=== PATIENT | female | born 1995 ===

== ENCOUNTER 2023-02-20 20:01 | Day surgery (SDC) | payer BC ==
[2023-02-20 20:22] VITALS: BMI 32.1
[2023-02-20] MEDS ORDERED: hydrALAZINE 20 MG/ML VIAL SLOW IVP PRN (20:43)
== END 2023-02-20 21:48 | disposition home or self-care (01) ==
LOC: CSHLD/OP 20:01
PROVIDERS: ATTEND Family Medicine
DX: O36.8130 Decreased fetal movements, third trimester, not applicable or unspecified (principal); Z79.899 Other long term (current) drug therapy; Z3A.34 34 weeks gestation of pregnancy
CPT/HCPCS: 76819; 99282

== ENCOUNTER 2023-03-21 00:17 | Day surgery (SDC) | payer BC ==
[2023-03-21 00:34] VITALS: BMI 31.3
[2023-03-21] MEDS ORDERED: hydrALAZINE 20 MG/ML VIAL SLOW IVP PRN (01:22)
[2023-03-21] MEDS ORDERED: Lactated Ringer's 1,000 ML IV SCH (01:45)
[2023-03-21 01:50] LABS: #Basophils 0.1 10x3/uL (0.0-0.2); #Eosinphils 0.4 10x3/uL (0.0-0.5); #Monocytes 1.3 10x3/uL (0.0-1.1); #Neutrophils 12.6 10x3/uL (1.5-8.4); %Basophils 0.7 % (0.0-2.0); %Eosinophils 2.3 % (0.0-6.0); %Lymphocytes 16.9 % (18.0-47.0); %Monocytes 7.2 % (0.0-10.0); %Neutrophils 71.3 % (40.0-75.0); Hematocrit 37.6 % (34.9-44.5); Hemoglobin 13.6 g/dL (12.0-15.5); Mean Corpuscular HGB CONC 36.2 g/dL (32.0-36.0); Mean Corpuscular Hemoglobin 31.5 pg (27.0-33.0); Mean Platelet Volume 10.8 fl (7.4-10.4); Platelet Count 278 10x3/uL (150-450); RBC Distribution Width 13.4 % (11.5-14.5); Red Blood Cell (RBC) Count 4.32 10x6/uL (3.90-5.03); White Blood Cell (WBC) Count 17.7 10x3/uL (3.5-10.5)
[2023-03-21 02:03] LABS: ALT (SGPT) 22 U/L (8-55); AST (SGOT) 25 U/L (5-34); Albumin 3.3 g/dL (3.5-5.0); Alkaline Phosphatase 165 U/L (40-110); Anion Gap 14 mmol/L (10-20); BUN (Urea Nitrogen) 10 mg/dL (7.0-18.7); Bilirubin, Total 0.3 mg/dL (0.2-1.2); Calc. Creatinine Clearance 214 mL/min (70-130); Calcium 9.1 mg/dL (7.8-10.44); Carbon Dioxide 18 mmol/L (22-29); Chloride 106 mmol/L (98-107); Estimated GFR 128; Globulin 3.1 g/dL (2.4-3.5); Glucose 88 mg/dL (70-105); Potassium 3.8 mmol/L (3.5-5.1); Protein, Total 6.4 g/dL (6.0-8.3); Sodium 134 mmol/L (136-145)
== END 2023-03-21 02:42 | disposition home or self-care (01) ==
LOC: CSHLD/OP 00:17
PROVIDERS: ATTEND Family Medicine
DX: O13.3 Gestational [pregnancy-induced] hypertension without significant proteinuria, third trimester (principal); Z79.899 Other long term (current) drug therapy; Z98.890 Other specified postprocedural states; Z3A.38 38 weeks gestation of pregnancy
CPT/HCPCS: 76819; 80053; 82570; 84156; 85025; 99283

== ENCOUNTER 2023-03-25 06:02 | Inpatient (IN) | payer BC ==
[2023-03-25 06:36] VITALS: BMI 33.6
[2023-03-25] MEDS ORDERED: Lidocaine 1% (PF) 30 ML VIAL SC PRN (07:07)
[2023-03-25] MEDS ORDERED: hydrALAZINE 20 MG/ML VIAL SLOW IVP PRN (07:07)
[2023-03-25] MEDS ORDERED: Butorphanol Tartrate 1 MG/ML VIAL SLOW IVP PRN (07:07)
[2023-03-25] MEDS ORDERED: Acetaminophen 500 MG TAB PO PRN (07:07)
[2023-03-25] MEDS ORDERED: Misoprostol 200 MCG TAB PR PRN (07:07)
[2023-03-25] MEDS ORDERED: Promethazine HCl 25 MG/ML VIAL IM PRN ×2 (07:07→17:09)
[2023-03-25] MEDS ORDERED: HYDROcodone/Acetaminophen 5/325 mg Tablet PO PRN (07:07)
[2023-03-25] MEDS ORDERED: Tranexamic Acid 1,000 MG/10 ML VIAL IVP PRN (07:07)
[2023-03-25] MEDS ORDERED: Ibuprofen 800 MG TAB PO PRN (07:07)
[2023-03-25] MEDS ORDERED: Carboprost 250 MCG/ML AMP IM PRN (07:07)
[2023-03-25] MEDS ORDERED: Ondansetron PF 4 MG/2 ML Vial IVP PRN ×2 (07:07→17:09)
[2023-03-25] MEDS ORDERED: Methylergonovine 0.2 MG/ML VIAL IM PRN (07:07)
[2023-03-25] MEDS ORDERED: Oxytocin 30 units/NS 500 ML 500 ML IV SCH ×2 (07:15)
[2023-03-25 07:48] LABS: Hematocrit 37.2 % (34.9-44.5); Hemoglobin 13.9 g/dL (12.0-15.5); Mean Corpuscular HGB CONC 37.4 g/dL (32.0-36.0); Mean Corpuscular Hemoglobin 32.6 pg (27.0-33.0); Mean Corpuscular Volume 87.1 fl (81.6-98.3); Mean Platelet Volume 11.1 fl (7.4-10.4); Platelet Count 266 10x3/uL (150-450); RBC Distribution Width 13.3 % (11.5-14.5); Red Blood Cell (RBC) Count 4.27 10x6/uL (3.90-5.03); White Blood Cell (WBC) Count 13.8 10x3/uL (3.5-10.5)
[2023-03-25 08:08] LABS: Syphilis Antibody Nonreactive (Nonreactive); Syphilis Antibody Index 0.04 S/CO (<1.00 Non-Reactive)
[2023-03-25 08:09] LABS: HBSAg Index 0.16 S/CO (0-0.99); Hep B Surf Ag - L&D Non-Reactive S/CO (NonReactive)
[2023-03-25 08:10] LABS: HIV (1/2) Antibody/Antigen Non-Reactive (NonReactive)
[2023-03-25] MEDS ORDERED: fentaNYL/Ropivacaine Epidural 100 ML ONE (16:21)
[2023-03-25] MEDS ORDERED: Naloxone HCl 0.4 mg/ml Vial IVP PRN ×2 (17:09)
[2023-03-25] MEDS ORDERED: ePHEDrine Sulfate 50 MG/10 ML VIAL SLOW IVP PRN (17:09)
[2023-03-25] MEDS ORDERED: Acetaminophen 325 MG TAB PO PRN (17:09)
[2023-03-25] MEDS ORDERED: Moisturizing Cream (Eucerin) 113 GM JAR TOP PRN (17:09)
[2023-03-25] MEDS ORDERED: diphenhydrAMINE 50 MG/ML VIAL IVP PRN (17:09)
[2023-03-25] MEDS ORDERED: Lactated Ringer's 500 ML IV PRN (17:09)
[2023-03-25] MEDS ORDERED: Communication Order-Pharmacy FS SCH (17:15)
[2023-03-25] MEDS ORDERED: fentaNYL 2 mcg/Ropivacaine 0.2% Epidural 100 ML CADD EPIDURAL SCH (17:15)
[2023-03-25] MEDS ORDERED: Calcium Carbonate 500 MG ChewTAB PO PRN (17:54)
[2023-03-26] MEDS ORDERED: Dexmedetomidine 200 MCG/2 ML VIAL ONE (02:57)
[2023-03-26] MEDS ORDERED: diphenhydrAMINE 50 MG/ML VIAL IVP SCH (03:15)
[2023-03-26] MEDS ORDERED: fentaNYL/Ropivacaine Epidural 100 ML ONE (08:17)
[2023-03-26] MEDS ORDERED: Milk Of Magnesia 30 ML UDCUP PO PRN (15:39)
[2023-03-26] MEDS ORDERED: hydrALAZINE 20 MG/ML VIAL SLOW IVP PRN (15:39)
[2023-03-26] MEDS ORDERED: Benzocaine-Menthol 82.5 ML CAN TOP PRN (15:39)
[2023-03-26] MEDS ORDERED: HYDROcodone/Acetaminophen 5/325 mg Tablet PO PRN (15:39)
[2023-03-26] MEDS ORDERED: Bisacodyl 10 MG SUPP PR PRN (15:39)
[2023-03-26] MEDS: Ibuprofen 800 MG TAB PO SCH ×2 (16:28→23:27)
[2023-03-26] MEDS: Ferrous Sulfate 325 MG TAB PO SCH (17:09)
[2023-03-26] MEDS: Docusate 100 MG CAP PO SCH (23:27)
[2023-03-27] MEDS: Ibuprofen 800 MG TAB PO SCH ×2 (08:13→16:58)
[2023-03-27] MEDS: Docusate 100 MG CAP PO SCH (08:13)
[2023-03-27 10:01] VITALS: BP 119/58; TEMP 98.3
[2023-03-27] MEDS: Ferrous Sulfate 325 MG TAB PO SCH (10:11)
[2023-03-27] MEDS ORDERED: Terbutaline Sulfate 1 MG/ML VIAL ONE (16:03)
[2023-03-27] MEDS ORDERED: Bupivacaine 0.25% HCL 30 ML VIAL ONE (16:03)
== END 2023-03-27 17:25 | disposition home or self-care (01) | DRG 807 ==
LOC: CSHLD 06:02 → CSHPP 03-26 15:51
PROVIDERS: ADMIT Family Medicine; ATTEND Family Medicine
PROC: 3E0P7VZ Introduction of Hormone into Female Reproductive, Via Natural or Artificial Opening (ICD-10-PCS; 2023-03-25)
PROC: 10907ZC Drainage of Amniotic Fluid, Therapeutic from Products of Conception, Via Natural or Artificial Opening (ICD-10-PCS; 2023-03-25)
PROC: 10H07YZ Insertion of Other Device into Products of Conception, Via Natural or Artificial Opening (ICD-10-PCS; 2023-03-25)
PROC: 10E0XZZ Delivery of Products of Conception, External Approach (ICD-10-PCS; principal; 2023-03-26)
PROC: 0KQM0ZZ Repair Perineum Muscle, Open Approach (ICD-10-PCS; 2023-03-26)
DX: O70.1 Second degree perineal laceration during delivery (principal); Z37.0 Single live birth; Z3A.39 39 weeks gestation of pregnancy
CPT/HCPCS: 36415; 85027; 86780; 86850; 86900; 86901; 87340; 87389; J1200; J2590; J3105; S0020